=== PATIENT | female | born 1945 | race Caucasian/White ===

== ENCOUNTER → 2017-04-07 | Outpatient (CLI) | payer OTHER, MEDICARE ==
[~2017-04-07] MED LIST: GADOBUTROL 10 ML VIAL IVP ONE
== END ==
LOC: FIMAGING 13:35
PROVIDERS: ATTEND Psychiatry & Neurology Neurology
DX: D32.0 Benign neoplasm of cerebral meninges (principal); G93.89 Other specified disorders of brain; H70.12 Chronic mastoiditis, left ear; G40.101 Localization-related (focal) (partial) symptomatic epilepsy and epileptic syndromes with simple partial seizures, not intractable, with status epilepticus
CPT/HCPCS: 70553; A9585

== ENCOUNTER 2017-10-13 15:51 | Observation (INO) | payer OTHER, MEDICARE ==
[2017-10-13] MEDS ORDERED: DILTIAZEM 25 MG/5 ML VIAL IVP ONE (16:25)
[2017-10-13] MEDS ORDERED: ASPIRIN 81 MG CHEWABLE TAB PO ONE (16:25)
--- NOTE | 2017-10-13 17:29 | CPEKG ---
Heart Rate: 79 RR Interval: 759 QRSD Interval: 84 QT Interval: 388 QTC Interval: 445 QRS Dimock: 25 T Wave Dimock: 33 EKG Severity - ABNORMAL ECG - EKG Impression: ATRIAL FIBRILLATION, V-RATE 76-82 EKG Impression: LOW VOLTAGE IN FRONTAL LEADS EKG Impression: NONSPECIFIC T ABNORMALITIES, LATERAL LEADS EKG Impression: artifact Electronically Signed By: Isai Galicia 16-Oct-2017 05:53:27
--- NOTE | 2017-10-13 17:48 | EDPHY ---
H & P Stated Complaint: rapid heartrate, sent by Dr. Paez Time Seen by Provider: 10/13/17 16:06 HPI/ROS: CHIEF COMPLAINT: Rapid heart rate, dizziness, shortness of breath HISTORY OF PRESENT ILLNESS: This is a 72-year-old female presents to the emergency department from the Cardiology Clinic. Patient was recently diagnosed with atrial fibrillation and admitted to [facility] from a to September 05. She initially presented following a seizure and was noted to be in atrial fibrillation. Patient does have a history of a meningioma with resection and has been on seizure meds for 6 or 7 years. She tells me that they have found a 2nd meningioma at [facility]. Records indicate that the patient presented atrial fibrillation with rapid ventricular response. She received metoprolol and converted. She was discharged from [facility] on metoprolol as well as Eliquis. She reports she you has been in her usual state of health until she woke morning and felt dizzy and breathless. She denies a sensation of palpitations, denies chest pain, denies fainting. She does state the dizziness feels like she might faint. No nausea or vomiting. She kept her appointment with Dr. Paez who noted that she was in atrial fibrillation referred her to the emergency department. Patient's records from [facility] were reviewed by myself. Patient did have an EKG on September 05, at the time of her discharge, at which time she was noted to be in atrial fibrillation per the report. Patient reports no other illnesses, no fevers or chills, no urinary complaints, no lightheadedness or headache, and no seizures recently since her discharge. REVIEW OF SYSTEMS: Aside from elements discussed in the HPI, a comprehensive 10-point review of systems was reviewed and is negative. PAST MEDICAL HISTORY: Meningioma, seizure history, atrial fibrillation SOCIAL HISTORY: Nonsmoker. VITAL SIGNS Reviewed by me. GENERAL: Very pleasant elderly female. No distress. Resting comfortably. HEENT: Atraumatic. Eyes: No icterus, no injection. Mouth: moist mucous membranes. No erythema or lesions. Neck: supple with no adenopathy. LUNGS: Clear to auscultation bilaterally, no wheezes, rhonchi or rales. CARDIAC: Irregularly irregular, tachycardic, no murmurs or gallops auscultated. ABDOMEN: Soft, nontender, nondistended, bowel sounds normal. BACK: No CVA tenderness. EXTREMITIES: No trauma. No edema. Range of motion is normal throughout. NEURO: Alert and oriented, grossly nonfocal. SKIN: Warm and dry, no rash. PSYCHIATRIC: Normal mentation, no agitation. - Medical/Surgical History Other PMH: Afib, meningioma 2000, epilepsy Constitutional: Initial Vital Signs Temperature (C) 36.7 C 10/13/17 16:05 Heart Rate 135 H 10/13/17 16:05 Respiratory Rate 16 10/13/17 16:05 Blood Pressure 153/87 H 10/13/17 16:05 O2 Sat (%) 94 10/13/17 16:05 O2 Delivery Mode Room Air Allergies/Adverse Reactions: divalproex sodium [From Depakote] Allergy (Verified 10/13/17 16:09) phenytoin [From Dilantin] Allergy (Verified 10/13/17 16:09) Home Medications: Medication Instructions Recorded Apixaban [Eliquis] 5 mg PO BID 10/13/17 Divalproex Sodium 500 mg PO BID 10/13/17 Metoprolol Succinate Xr [Toprol Xl 50 mg PO DAILY 10/13/17 50 mg (*)] levETIRAcetam [Keppra] 750 mg PO 10/13/17 Medical Decision Making - Diagnostics EKG Interpretation: 12-LEAD EKG: Please see the full report in [employer]. My interpretation: Atrial fibrillation. 1st EKG from Cardiology Clinic documents ventricular rate of 139. 2nd EKG performed in the emergency department after diltiazem documents in ventricular rate of 79, underlying atrial fibrillation. Imaging Results: Imaging Impressions Chest X-Ray 10/13/17 16:25 Impression: Moderate cardiac enlargement and hiatal hernia; otherwise negative.. ED Course/Re-evaluation: 72-year-old female presents to the emergency department in atrial fibrillation with rapid ventricular response. She was 1st diagnosed with atrial fibrillation on August 31 and was discharged from [facility] on September 05. On initial hospitalization the patient was converted from atrial fibrillation to sinus rhythm with a cyst small dose of metoprolol. She was discharged on metoprolol 50 mg twice daily. I believe the impression of the patient as well as Dr. Paez is at the patient had been converted and was in sinus rhythm at the time of discharge. However on my review of the records patient had an EKG from May 8th demonstrating atrial fibrillation. Per the patient's history, she woke this morning feeling significantly different and she has had felt previously with dizziness and some shortness of breath. Patient had IV placed and received diltiazem 20 mg IV. This controlled her rate with a ventricular rate of 80, underlying atrial fibrillation. Labs were somewhat delayed secondary to difficulty in obtaining bloods. Patient 's troponin at point of care ways 0. Electrolytes are unremarkable with the exception of a creatinine of 1.2. CBC and D-dimer are pending at this time. They will be performed at the [facility]. Patient's course was discussed with Dr. Luis Alberto Lo. She will be admitted to the PCU at [facility]. Patient is in agreement. Heart rate at time of transfer was 96. Differential Diagnosis: Differential diagnosis of the patient's dizziness was considered including but not limited to peripheral and central causes of vertigo, cardiac arrhythmias, cardiac ischemia, electrolyte disturbances, neurologic causes, orthostatic causes including dehydration, and blood loss. Consult/Admit Bed Type: Dr. Lo, PCU - Data Points Laboratory Results: Laboratory Results 10/13/17 17:42 10/13/17 10/13/17 10/13/17 18:09 18:01 17:42 WBC RBC Hgb Hct MCV MCH MCHC RDW Plt Count MPV Neut % (Auto) Lymph % (Auto) [place] % (Auto) Eos % (Auto) Baso % (Auto) Nucleat RBC Rel Count Absolute Neuts (auto) Absolute Lymphs (auto) Absolute Monos (auto) Absolute Eos (auto) Absolute Basos (auto) Absolute Nucleated RBC Immature Gran % Immature Gran # D-Dimer < 0.27 ug/mLFEU ug/mLFEU (0.00-0.50) POC Sodium 137 mEq/L mEq/L (135-145) POC Potassium 4.2 mEq/L mEq/L (3.3-5.0) POC Chloride 107.0 mEq/L mEq/L (97-110) POC Total CO2 20 mEq/L L mEq/L (22-31) POC BUN 9 mg/dL mg/dL (7-23) POC Creatinine 1.2 mg/dL H mg/dL (0.6-1.0) POC Glucose 107 mg/dL H mg/dL (70-100) POC Calcium 9.1 mg/dL mg/dL (8.5-10.4) POC Total Bilirubin 0.6 mg/dL mg/dL (0.1-1.4) POC AST 35 IU/L IU/L (14-46) POC ALT 25 IU/L IU/L (9-52) POC Alk Phosphatase 125 IU/L IU/L (38-126) POC Troponin I 0.00 ng/mL ng/mL (0.00-0.08) POC Total Protein 6.3 g/dL g/dL (6.3-8.2) POC Albumin 3.3 g/dL L g/dL (3.5-5.0) 10/13/17 17:42 WBC 8.84 10^3/uL 10^3/uL (3.80-9.50) RBC 5.48 10^6/uL H 10^6/uL (4.18-5.33) Hgb 15.4 g/dL g/dL (12.6-16.3) Hct 47.7 % H % (38.0-47.0) MCV 87.0 fL fL (81.5-99.8) MCH 28.1 pg pg (27.9-34.1) MCHC 32.3 g/dL L g/dL (32.4-36.7) RDW 15.6 % H % (11.5-15.2) Plt Count 195 10^3/uL 10^3/uL (150-400) MPV 11.5 fL fL (8.7-11.7) Neut % (Auto) 66.4 % % (39.3-74.2) Lymph % (Auto) 18.7 % % (15.0-45.0) [place] % (Auto) 11.8 % % (4.5-13.0) Eos % (Auto) 2.6 % % (0.6-7.6) Baso % (Auto) 0.2 % L % (0.3-1.7) Nucleat RBC Rel Count 0.0 % % (0.0-0.2) Absolute Neuts (auto) 5.87 10^3/uL 10^3/uL (1.70-6.50) Absolute Lymphs (auto) 1.65 10^3/uL 10^3/uL (1.00-3.00) Absolute Monos (auto) 1.04 10^3/uL H 10^3/uL (0.30-0.80) Absolute Eos (auto) 0.23 10^3/uL 10^3/uL (0.03-0.40) Absolute Basos (auto) 0.02 10^3/uL 10^3/uL (0.02-0.10) Absolute Nucleated RBC 0.00 10^3/uL 10^3/uL (0-0.01) Immature Gran % 0.3 % % (0.0-1.1) Immature Gran # 0.03 10^3/uL 10^3/uL (0.00-0.10) D-Dimer POC Sodium POC Potassium POC Chloride POC Total CO2 POC BUN POC Creatinine POC Glucose POC Calcium POC Total Bilirubin POC AST POC ALT POC Alk Phosphatase POC Troponin I POC Total Protein POC Albumin Medications Given: Discontinued Medications Aspirin (Aspirin) 324 mg PO EDNOW ONE Stop: 10/13/17 16:26 Last Admin: 10/13/17 17:07 Dose: 324 mg Diltiazem HCl (Cardizem 25 Mg/5 Ml Vial) 20 mg IVP EDNOW ONE Stop: 10/13/17 16:26 Last Admin: 10/13/17 17:11 Dose: 20 mg Point of Care Test Results: Chemistry 10/13/17 10/13/17 18:09 18:01 POC Sodium 137 mEq/L mEq/L (135-145) POC Potassium 4.2 mEq/L mEq/L (3.3-5.0) POC Chloride 107.0 mEq/L mEq/L (97-110) POC Total CO2 20 mEq/L L mEq/L (22-31) POC BUN 9 mg/dL mg/dL (7-23) POC Creatinine 1.2 mg/dL H mg/dL (0.6-1.0) POC Glucose 107 mg/dL H mg/dL (70-100) POC Calcium 9.1 mg/dL mg/dL (8.5-10.4) POC Total Bilirubin 0.6 mg/dL mg/dL (0.1-1.4) POC AST 35 IU/L IU/L (14-46) POC ALT 25 IU/L IU/L (9-52) POC Alk Phosphatase 125 IU/L IU/L (38-126) POC Troponin I 0.00 ng/mL ng/mL (0.00-0.08) POC Total Protein 6.3 g/dL g/dL (6.3-8.2) POC Albumin 3.3 g/dL L g/dL (3.5-5.0) Departure - Departure Disposition: [facility] Inpatient Acute Clinical Impression: Atrial fibrillation Qualifiers: Atrial fibrillation type: unspecified Qualified Code(s): I48.91 - Unspecified atrial fibrillation Condition: Fair
[2017-10-13 18:44] LABS: PLATELET COUNT 195 10^3/uL (150-400)
--- NOTE | 2017-10-13 21:33 | PDGENHP ---
History and Physical History and Physical: CC: Sent from Dr. Paez office for atrial fibrillation symptomatic HISTORY: This patient had her 1st episode of AFib just about 6 weeks ago which was triggered by a seizure. She has a long history of seizure disorder and was in the airport about [place] get on a plane when she seized. Upon waking from the seizure she was assessed by paramedics who found her in AFib and she was taken to [facility] where she was treated for atrial fibrillation with metoprolol and Eliquis. She was initially in rapid rate but left the hospital in atrial fibrillation with good rate control. Since that time she has felt overall well at home until today. This morning she had onset of significant weakness and dyspnea without chest pain shortness of breath or palpitations or fever symptoms. She had an appoint with Dr. Paez so went in to see him and he found her to be in rapid atrial fibrillation. He had her go over to the or emergency room in [facility] where she had AFib in the 130s without heart failure or ischemia. She was given a single dose of IV diltiazem 20 mg which slowed her heart rate down into the 95-105 range and she is now transferred here for further assessment and management. She has no history of any heart disease besides the AFib. She comes accompanied by records from the [facility] which I reviewed and it shows an echocardiogram revealing 82% ejection fraction without wall motion abnormalities, no significant valvular abnormalities, with left atrial enlargement being the main abnormality identified. She was not in heart failure at the time of that admission. Since her admission to the [place] she was seen in her neurology clinic and her Keppra was increased from 750 twice daily to 750 three times daily and she is tolerating that medicine well ROS: A comprehensive 10 system review revealed no other significant findings PAST MEDICAL HISTORY: Seizure disorder Meningioma resection and a recurrent meningioma Hypertension Cataract surgery FAMILY MEDICAL HISTORY: Hypertension and breast cancer SOCIAL HISTORY: She is single and has never She has never used any tobacco or alcohol MEDICATIONS: The patients list has been reconciled by our clinical pharmacist in the EMR. I have reviewed the list and ordered appropriate medicines. Allergies include Depakote and Dilantin PHYSICAL EXAMINATION: Vital Signs: Initial heart rate at the ER was 132, current heart rate 103-104 with good blood pressure no fever Oracle Analyst: AFib, better rate control at this time Examination: General: alert, oriented, good mentation, relaxed Skin: warm, dry, good color, no rash HEENT: normal Neck: no mass or jvd Resps: relaxed Lungs: clear breath sounds Heart: irregular, no murmur Abdomen: soft, nondistended, nontender, +BS, no mass Upper Extremities: normal Lower Extremities: no edema, warm No Bleeding or bruising Neurologic: normal speech/language, 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, no focal weakness IV site: looks normal LABORATORY DATA: Unremarkable CBC On chemistry she has a creatinine of 1.2 glucose 107 otherwise unremarkable metabolic panel and a normal troponin On review of old laboratory data here knows that a couple years ago she had a TSH of greater than 8, but she was unaware of this and she has never been treated for thyroid disease RADIOLOGY STUDIES: A chest x-ray was done in the ER and I reviewed the image from that, my interpretation is that there may be a very minimal left pleural effusion otherwise unremarkable 12 LEAD EKG: Done at the ER, I reviewed the tracing which shows rapid atrial fibrillation with low voltages overall nothing that appears ischemic ASSESSMENT: # acute rapid atrial fibrillation in a patient with a history of atrial fibrillation, unable to determine whether this is persistent or paroxysmal disease, but the current episode is symptomatic probably due to the fact rapid heart rate with absence of heart failure # left atrial enlargement is likely the main cardiac causative factor in her AFib # history of elevated TSH a couple years ago, should be rechecked. If she has hypothyroidism this could impact both her AFib and her seizure disorder # seizure disorder with a recent seizure on medication. Her medication has been increased in dose to his current dose and she has done fine in the couple weeks since that dose increased. As above would want to recheck her thyroid function is this was off a couple years ago # presence of a recurrent meningioma, minimally symptomatic with occasional headache PLANS: -placed on lunchroom monitor observation status, though may need inpatient status if we are unable to control her rate or she needs other procedures -will begin oral diltiazem at this time, continue her metoprolol for the time being -cardiology consult in the morning, will review whether we think we are going to be able to control her heart rate sufficiently or whether she may need AFib suppressive therapy -recheck TSH and consider treating for hypothyroidism if that is low -continue her current dose of seizure medication at Keppra 750 three times daily -continue her current anticoagulant -after detailed discussion of options risks and benefits etc she is choosing a full cor order at this time I have reviewed the patient's case in detail with Dr. Apolonia Moreno I have reviewed the patient's past medical records as part of this assessment, including outpatient clinic records and previous laboratory studies here
[2017-10-13] MEDS: APIXABAN 5 MG TAB PO SCH (22:29)
[2017-10-13] MEDS: levETIRAcetam 500 MG TAB PO SCH (22:29)
[2017-10-13] MEDS: METOPROLOL TARTRATE 50 MG TAB PO SCH (22:29)
[2017-10-13] MEDS ORDERED: ZOLPIDEM TARTRATE 5 MG TAB PO PRN (23:02)
[2017-10-13] MEDS ORDERED: ACETAMINOPHEN 325 MG TAB PO PRN (23:02)
[2017-10-13] MEDS ORDERED: ONDANSETRON DISINTEGRATING 4 MG TAB PO PRN (23:02)
[2017-10-13] MEDS ORDERED: ONDANSETRON 4 MG/2 ML VIAL IVP PRN (23:02)
[2017-10-14] MEDS: DILTIAZEM 30 MG TAB PO SCH ×3 (01:09→12:16)
[2017-10-14] MEDS: levETIRAcetam 500 MG TAB PO SCH ×2 (08:26→14:47)
[2017-10-14] MEDS: METOPROLOL TARTRATE 50 MG TAB PO SCH (08:30)
[2017-10-14] MEDS: APIXABAN 5 MG TAB PO SCH (08:30)
--- NOTE | 2017-10-14 11:14 | GCON ---
[f rep st] CONSULTATION REFERRING PHYSICIAN: Shahbaz Lo MD CHIEF COMPLAINT: Increased heart rate and shortness of breath. HISTORY OF PRESENT ILLNESS: This is a 72-year-old female with a past medical history of seizure disorder, meningioma resection, hypertension, cataract surgery, who was in the usual state of health in early part of August when she was waiting at the airport, when she had a seizure disorder at the airport and was taken to [facility], where she was noted to be in atrial fibrillation and found to be in atrial fibrillation. She was evaluated for the seizure disorder. Her Keppra was increased. For the atrial fibrillation, echocardiogram was done. EF was normal. Moderate left atrial enlargement was noted. Rate control was started. Patient was well rate controlled on metoprolol. The patient was started on Eliquis, and the patient was sent home on rate control with a followup cardiology appointment. The patient had an appointment with Dr. Paez however, in the morning. She started feeling dizzy and short of breath and weak. She went to Dr. Paez's office and was found to have atrial fibrillation with RVR and was transferred here. The patient was given diltiazem, which slowed down the heart rate, and she started feeling better. She denies any presyncope or syncope. No chest pain or pressure. Does not appear to be in congestive heart failure. Her EF is normal as per the echocardiogram over the past 20 hours she has been here. She started feeling well and appears to be in no distress. REVIEW OF SYSTEMS: Other than the above is negative. She denies any fevers, chills, abdominal pain, cough. PAST MEDICAL HISTORY: Seizure disorder, meningioma resection, hypertension, cataract surgery. FAMILY HISTORY: Hypertension and breast cancer. SOCIAL HISTORY: Single, never . Never used any tobacco or alcohol. ALLERGIES: Depakote and Dilantin. At home, she is on Eliquis, metoprolol, and Keppra. PHYSICAL EXAM: VITAL SIGNS: Heart rate of 72, irregular, in atrial fibrillation. Blood pressure 110/60, respiratory rate 16. HEENT: Pupils equal , reacting to light, accommodating. SKIN: Warm, dry. Good color. No rash. HEENT: Normal. NECK: No JVD. No lymphadenopathy. No thyromegaly. CHEST: Good air entry bilaterally, equal. No rales, rhonchi, or rub. CARDIOVASCULAR: S1, S2, irregular. No murmurs heard. ABDOMEN: Soft, nontender. No guarding or rigidity. Bowel sounds present. EXTREMITIES: No edema. NEUROLOGIC: Intact. Sensations and motor movements are normal. Atrial fibrillation with RVR, which is now secondary to atrial fibrillation with good rate control. IMPRESSION AND PLAN: This is a 72-year-old female with atrial fibrillation with rapid ventricular response, with which she is symptomatic, but when her heart rate improves, she is asymptomatic. In view of this, the patient will benefit from rate control. In addition to metoprolol, Cardizem 30 mg q.i.d. has been added. I agree with that. Eliquis will be needed. I have impressed upon the patient the need for that. No further inpatient investigation is needed. However, as an outpatient, we can evaluate if any other rhythm control management is needed in her case. The patient needs to be evaluated for sleep apnea. However, this can be done as an outpatient. Thank you for letting us participate in the patient's care. /[id number]/MODL MTDD
--- NOTE | 2017-10-14 12:11 | PDDCSUM ---
Discharge Summary Discharge Summary: Dates of service 10/13-10/14/17 Consultations: cardiology Procedures: none Hospital course by problem: # a fib w/rvr: relatively new diagnosis, previously on metoprolol and now added diltiazem, rate controlled with additional med but on personal review of ecg still in A fib. Appreciate cardiology evaluation, no recommendation for further IP w/u. Will dc home to f/u with cardiology as an OP. Continue stephany. # sz d/o: continue matheus # meningioma: s/p resection Dc home in good condition f/u with PCP and cardiology within one -2 weeks Items for follow up: BP/HR/rhythm on metoprolol/diltiazem > 35 min spent in dc more than half in coordination of care
[2017-10-14 13:14] VITALS: BP 147/85
--- NOTE | 2017-10-14 15:24 | ASDISCHSUM ---
Discharge Information Plan Status:Home with No Needs Medically Cleared to Leave: Discharge Date:10/14/2017 02:40 PM CM D/C Disposition:Home, Routine, Self-Care ADT D/C Disposition:Home, Routine, Self-Care Projected Discharge Date:10/14/2017 02:40 PM Transportation at D/C:Family Discharge Delay Reason: Follow-Up Date:10/14/2017 02:40 PM Discharge Slot: Final Diagnosis: Placement Information Patient Contact Information Contact Name:ASHLYN Relationship: Address: Work Phone: City: [facility] Phone: State/Zip Code: Email: Financial Information Financial Class:Medicare Primary Plan Desc:MEDICARE OUTPATIENT Primary Plan Number:[id number] Secondary Plan Desc:JOSI/KORI SUPPLEMENT Secondary Plan Number:[id number] Assessment Information [facility] CM Progress Note CM Note CM Note Notes: Dc order received. Anticipate dc home independently. CM available if needs/changes. Date Signed: 10/14/2017 03:24 PM Electronically Signed By:Kerri Zavala RN Intervention Information
== END 2017-10-14 14:40 | disposition home or self-care (01) ==
LOC: CED 15:51 → CEDHOLD 18:24 → F2W 20:30
PROVIDERS: ADMIT Internal Medicine; ATTEND Internal Medicine
DX: I48.91 Unspecified atrial fibrillation (principal); G40.909 Epilepsy, unspecified, not intractable, without status epilepticus; I51.7 Cardiomegaly; I10 Essential (primary) hypertension; D32.9 Benign neoplasm of meninges, unspecified; Z86.011 Personal history of benign neoplasm of the brain; Z80.3 Family history of malignant neoplasm of breast; Z79.01 Long term (current) use of anticoagulants
CPT/HCPCS: 71046; 93005; 96374; 99285; G0378; 80053-PO; 84484-PO

== ENCOUNTER → 2017-10-13 | Outpatient (CLI) | payer OTHER, MEDICARE | LOC: BHCLAF 15:15 | PROVIDERS: ATTEND Internal Medicine Cardiovascular Disease | DX: I48.91 Unspecified atrial fibrillation (principal) | CPT/HCPCS: 93005-PO ==

== ENCOUNTER → 2017-10-20 | Outpatient (CLI) | payer OTHER, MEDICARE | LOC: BHCLAF 15:30 | PROVIDERS: ATTEND Internal Medicine Cardiovascular Disease | DX: I48.91 Unspecified atrial fibrillation (principal); G40.909 Epilepsy, unspecified, not intractable, without status epilepticus | CPT/HCPCS: 93005-PO ==

== ENCOUNTER → 2017-12-19 | Outpatient (CLI) | payer OTHER, MEDICARE | LOC: FIMAGING 12:44 | PROVIDERS: ATTEND Family Medicine | DX: N63.21 Unspecified lump in the left breast, upper outer quadrant (principal) ==

== ENCOUNTER → 2017-12-27 | Outpatient (CLI) | payer OTHER, MEDICARE ==
[~2017-12-27] MED LIST changes: +BUPIVACAINE 0.5% 30 ML SDV ONE; -GADOBUTROL 10 ML VIAL IVP ONE; +LIDOCAINE 1% 300 MG/30 ML SDV ONE
== END ==
LOC: FIMAGING 07:30
PROVIDERS: ATTEND Family Medicine
PROC: 0HBU3ZX Excision of Left Breast, Percutaneous Approach, Diagnostic (ICD-10-PCS; principal; 2017-12-27)
DX: D24.2 Benign neoplasm of left breast (principal)

== ENCOUNTER → 2018-01-10 | Outpatient (CLI) | payer OTHER, MEDICARE | LOC: BRMIMAGING 09:00 | PROVIDERS: ATTEND Family Medicine | DX: Z13.820 Encounter for screening for osteoporosis (principal); M81.0 Age-related osteoporosis without current pathological fracture; E07.9 Disorder of thyroid, unspecified; Z78.0 Asymptomatic menopausal state; Z79.01 Long term (current) use of anticoagulants ==

== ENCOUNTER → 2018-07-24 | Outpatient (CLI) | payer OTHER, MEDICARE | LOC: FIMAGING 10:00 | PROVIDERS: ATTEND Family Medicine | DX: R92.0 Mammographic microcalcification found on diagnostic imaging of breast (principal) ==

== ENCOUNTER 2018-10-03 07:33 | Day surgery (SDC) | payer OTHER, MEDICARE | END 2018-10-03 10:33 | disposition home or self-care (01) | LOC: FCATH 07:33 ==